=== PATIENT | male | born 1960 | race Caucasian/White ===

== ENCOUNTER 2018-03-19 02:43 | Inpatient (IN) | payer OTHER ==
[2018-03-19] MEDS ORDERED: predniSONE 20 MG TABLET (UD) PO ONE (04:46)
[2018-03-19] MEDS ORDERED: predniSONE 20 MG TABLET (UD) ONE (04:48)
[2018-03-19] MEDS ORDERED: ALBUTEROL SO4 2.5/IPRATROPIUM 0.5 INH SOL 3 ML VIAL.NEB. NEB ONE (04:48)
--- NOTE | 2018-03-19 04:51 | PDOC ---
History of Present Illness - General History Source: Patient Exam Limitations: No Limitations - History of Present Illness Initial Comments: 03/19/18 06:52 The patient is a 57-year-old male, with a past medical history of HTN and HLD, who presents to the ED with 4 days of wheezing and shortness of breath. Patient is a current everyday smoker. The patient denies any fevers, chills, nausea, vomiting, diarrhea, or abdominal pain. Denies any chest pain or palpitations. Denies any urinary symptoms. Allergies: ampicillin Social History: Current smoker. Surgical History: None reported. PCP: Dr. Olvera <Alison Solomon - Last Filed: 03/19/18 06:57> <Elizabeth Garrett - Last Filed: 03/19/18 07:12> - General Chief Complaint: Wheezing Stated Complaint: DIFFICULTY BREATHING Time Seen by Provider: 03/19/18 04:44 Past History <Alison Solomon - Last Filed: 03/19/18 06:57> - Past Medical History Anemia: No Asthma: No Cancer: No Cardiac Disorders: No CVA: No COPD: No CHF: No Dementia: No Diabetes: No GI Disorders: No Disorders: No HTN: Yes Hypercholesterolemia: Yes Liver Disease: No Seizures: No Thyroid Disease: No - Surgical History Abdominal Surgery: No Appendectomy: No Cardiac Surgery: No Cholecystectomy: No Lung Surgery: No Neurologic Surgery: No Orthopedic Surgery: No - Suicide/Smoking/Psychosocial Hx Smoking History: Current every day smoker Have you smoked in the past 12 months: Yes Number of Cigarettes Smoked Daily: 4 Information on smoking cessation initiated: No Hx Alcohol Use: No Drug/Substance Use Hx: No Substance Use Type: None <Elizabeth Garrett - Last Filed: 03/19/18 07:12> - Past Medical History Allergies/Adverse Reactions: Allergies Allergy/AdvReac Type Severity Reaction Status Date / Time ampicillin Allergy Verified 03/19/18 04:33 Home Medications: Ambulatory Orders Lisinopril 0 mg PO DAILY 03/19/18 Review of Systems - Review of Systems Able to Perform ROS?: Yes Comments:: 03/19/18 06:56 CONSTITUTIONAL: Absent: fever, chills, diaphoresis, generalized weakness, malaise, loss of appetite HEENT: Absent: rhinorrhea, nasal congestion, throat pain, throat swelling, difficulty swallowing, mouth swelling, ear pain, eye pain, visual Changes CARDIOVASCULAR: Absent: chest pain, syncope, palpitations, irregular heart rate, lightheadedness , peripheral edema RESPIRATORY: Present: (+)shortness of breath, wheezing. Absent: cough, dyspnea with exertion, orthopnea, stridor, hemoptysis GASTROINTESTINAL: Absent: abdominal pain, abdominal distension, nausea, vomiting, diarrhea, constipation, melena, hematochezia GENITOURINARY: Absent: dysuria, frequency, urgency, hesitancy, hematuria, flank pain, genital pain MUSCULOSKELETAL: Absent: myalgia, arthralgia, joint swelling SKIN: Absent: rash, itching, pallor HEMATOLOGIC/IMMUNOLOGIC: Absent: easy bleeding, easy bruising, lymphadenopathy, frequent infections ENDOCRINE: Absent: unexplained weight gain, unexplained weight loss, heat intolerance, cold intolerance NEUROLOGIC: Absent: headache, focal weakness or paresthesias, dizziness, unsteady gait, seizure, mental status changes, bladder or bowel incontinence PSYCHIATRIC: Absent: anxiety, depression, suicidal or homicidal ideation, hallucinations. <Alison Solomon - Last Filed: 03/19/18 06:57> *Physical Exam - Vital Signs Last Vital Signs Temp Pulse Resp BP Pulse Ox 97.7 F 89 19 145/100 98 03/19/18 04:34 03/19/18 06:39 03/19/18 06:39 03/19/18 06:39 03/19/18 05:29 - Physical Exam Comments: 03/19/18 06:57 GENERAL: Well developed, well nourished. Awake and alert. No acute distress. HEENT: (+)Nasal flaring. Normocephalic, atraumatic. PERRLA, EOMI. No conjunctival pallor. Sclera are non-icteric. Moist mucous membranes. Oropharynx is clear. NECK: Supple. Full ROM. No JVD. Carotid pulses 2+ and symmetric, without bruits. No thyromegaly. No lymphadenopathy. CARDIOVASCULAR: Regular rate and rhythm. No murmurs, rubs, or gallops. Distal pulses are 2+ and symmetric. PULMONARY: (+)Wheezing and crackles bilaterally. ABDOMINAL: Soft. Non-tender. Non-distended. No rebound or guarding. No organomegaly. Normoactive bowel sounds. MUSCULOSKELETAL Normal range of motion at all joints. No bony deformities or tenderness. No CVA tenderness. EXTREMITIES: (+)Bilateral lower extremity edema. No cyanosis. No clubbing. No calf tenderness. SKIN: Warm and dry. Normal capillary refill. No rashes. No jaundice. NEUROLOGICAL: Alert, awake, appropriate. Cranial nerves 2-12 intact. No deficits to light touch and temperature in face, upper extremities and lower extremities. No motor deficits in the in face, upper extremities and lower extremities. PSYCHIATRIC: Cooperative. Good eye contact. Appropriate mood and affect. <Alison Solomon - Last Filed: 03/19/18 06:57> - Vital Signs Last Vital Signs Temp Pulse Resp BP Pulse Ox 97.7 F 108 H 20 145/103 H 97 03/19/18 04:34 03/19/18 04:34 03/19/18 04:34 03/19/18 04:34 03/19/18 04:34 - Physical Exam General Appearance: Yes: Appropriately Dressed Respiratory/Chest: positive: Accessory Muscle Use, Labored Respiration, Rapid RR , Decreased Breath Sounds Cardiovascular: positive: Tachycardia Gastrointestinal/Abdominal: positive: Normal Bowel Sounds, Soft Extremity: positive: Normal Inspection, Normal Range of Motion, Pedal Edema, Swelling. negative: Calf Tenderness Integumentary: positive: Normal Color, Dry, Warm Neurologic: positive: Fully Oriented, Alert, Normal Mood/Affect <Elizabeth Garrett - Last Filed: 03/19/18 07:12> Heart Score/ECG Review - History History: Slightly suspicious - Electrocardiogram EKG: Normal - Age Age: 45-65 - Risk Factors Risk Factors Heart Score: Yes Hx Hypercholesterolemia, Yes Hx Hypertension, Yes Smoking History Based on the list above the patient has:: >/=3 risk factors or Hx atherosclerotic disease - Troponin Troponin: </= normal limit - Score Heart Score - Total: 3 - ECG Intrepretation Rhythm: Regular Rhythm Comment:: 03/19/18 07:09 NSR; 96 BPM <Elizabeth Garrett - Last Filed: 03/19/18 07:12> ED Treatment Course - LABORATORY CBC & Chemistry Diagram: 03/19/18 05:28 03/19/18 05:28 - ADDITIONAL ORDERS Additional order review: Laboratory Results 03/19/18 03/19/18 03/19/18 05:28 05:28 05:28 Sodium 140 Potassium 4.6 Chloride 106 Carbon Dioxide 30 Anion Gap 5 L BUN 18 Creatinine 1.0 Creat Clearance w eGFR > 60 Random Glucose 114 H Calcium 8.7 Total Bilirubin 0.6 AST 26 ALT 34 Alkaline Phosphatase 101 Troponin I 0.02 B-Natriuretic Peptide 2118.3 H Total Protein 7.7 Albumin 3.8 Lipase 136 03/19/18 05:28 RBC 5.06 MCV 82.3 MCHC 32.1 RDW 14.8 D MPV 10.5 Neutrophils % 59.9 Lymphocytes % 29.0 D Monocytes % 8.9 Eosinophils % 1.6 Basophils % 0.6 - Medications Given in the ED: ED Medications Discontinued Medications Generic Name Dose Route Start Last Admin Trade Name Freq PRN Reason Stop Dose Admin Albuterol/Ipratropium 1 amp 03/19/18 05:00 03/19/18 06:16 Duoneb - NEB 03/19/18 05:46 1 amp Q15M KANDY Administration Furosemide 40 mg 03/19/18 06:24 03/19/18 06:34 Lasix Injection - IVPUSH 03/19/18 06:25 40 mg ONCE ONE Administration Prednisone 60 mg 03/19/18 04:46 03/19/18 04:53 Deltasone - PO 03/19/18 04:47 60 mg ONCE ONE Administration <Alison Solomon - Last Filed: 03/19/18 06:57> - LABORATORY CBC & Chemistry Diagram: 03/19/18 05:28 03/19/18 05:28 <Elizabeth Garrett - Last Filed: 03/19/18 07:12> Progress Note - Progress Note Progress Note: A: <Elizabeth Garrett - Last Filed: 03/19/18 07:12> Medical Decision Making - Medical Decision Making 03/19/18 07:07 improved aeration + tachypnea and rales on exam, patient to be admitted. pending sign out to hospitalist team for May service. <Elizabeth Garrett - Last Filed: 03/19/18 07:12> *DC/Admit/Observation/Transfer - Attestations Scribe Attestion: 03/19/18 06:59 Documentation prepared by Alison Solomon, acting as curator medical museum for Mackenzie Sandy MD. <Alison Solomon - Last Filed: 03/19/18 06:57> - Discharge Dispostion Decision to Admit order: Yes <Elizabeth Garrett - Last Filed: 03/19/18 07:12> Diagnosis at time of Disposition: Respiratory distress Hypertension Qualifiers: Hypertension type: essential hypertension Qualified Code(s): I10 - Essential ( primary) hypertension CHF exacerbation Qualifiers: Heart failure type: unspecified Qualified Code(s): I50.9 - Heart failure, unspecified - Referrals Referrals: Luis Olvera MD [Primary Care Provider] - - Patient Instructions - Post Discharge Activity
[2018-03-19 04:52] VITALS: BMI 29.8
[2018-03-19] MEDS: ALBUTEROL SO4 2.5/IPRATROPIUM 0.5 INH SOL 3 ML VIAL.NEB. NEB SCH ×4 (05:01→06:16)
[2018-03-19 05:41] LABS: BASO % 0.6 % (0-2.0); EOS % 1.6 % (0-4.5); HEMATOCRIT 41.7 % (35.4-49); HEMOGLOBIN 13.4 GM/dL (11.7-16.9); MCH 26.4 pg (25.7-33.7); MCHC 32.1 g/dl (32.0-35.9); MEAN CELL VOLUME 82.3 fl (80-96); MEAN PLT VOLUME 10.5 fl (7.5-11.1); MONO % 8.9 % (3.8-10.2); NEUT % 59.9 % (42.8-82.8); PLATELET COUNT 266 K/MM3 (134-434); RBC 5.06 M/mm3 (4.00-5.60); RDW 14.8 % (11.9-15.9); WHITE BLOOD COUNT 10.6 K/mm3 (4.0-10.0)
[2018-03-19 06:05] LABS: ALBUMIN 3.8 g/dl (3.4-5.0); ALK PHOS 101 U/L (45-117); ANION GAP 5 MMOL/L (8-16); BILIRUBIN,TOTAL 0.6 mg/dL (0.2-1); BLOOD UREA NITROGEN 18 mg/dL (7-18); CALCIUM 8.7 mg/dL (8.5-10.1); CHLORIDE 106 mmol/L (98-107); CO2 30 mmol/L (21-32); GLUCOSE,RANDOM 114 mg/dL (74-106); POTASSIUM 4.6 mmol/L (3.5-5.1); SGOT/AST 26 U/L (15-37); SGPT/ALT 34 U/L (13-61); SODIUM 140 mmol/L (136-145); TOT PROT 7.7 g/dl (6.4-8.2)
[2018-03-19] MEDS ORDERED: FUROSEMIDE 40 MG/4 ML INJECTABLE VIAL IVPUSH ONE (06:24)
[2018-03-19] MEDS ORDERED: FUROSEMIDE 40 MG/4 ML INJECTABLE VIAL ONE (06:31)
--- NOTE | 2018-03-19 08:36 | PDOC ---
*Physical Exam - Vital Signs Last Vital Signs Temp Pulse Resp BP Pulse Ox 98.5 F 89 19 152/102 H 95 03/19/18 07:19 03/19/18 07:19 03/19/18 07:19 03/19/18 07:19 03/19/18 07:19 <LluviaEnid dennis - Last Filed: 03/19/18 09:26> - Vital Signs Last Vital Signs Temp Pulse Resp BP Pulse Ox 98.5 F 89 19 152/102 H 95 03/19/18 07:19 03/19/18 07:19 03/19/18 07:19 03/19/18 07:19 03/19/18 07:19 - Physical Exam General Appearance: Yes: Appropriately Dressed. No: Apparent Distress HEENT: positive: Normal Voice Neck: positive: Supple Respiratory/Chest: negative: Respiratory Distress Cardiovascular: positive: S1, S2 Gastrointestinal/Abdominal: positive: Soft. negative: Tender Extremity: negative: Pedal Edema Integumentary: positive: Dry, Warm Neurologic: positive: Fully Oriented, Alert, Normal Mood/Affect <Pieter Jenkins - Last Filed: 03/19/18 10:16> ED Treatment Course - LABORATORY CBC & Chemistry Diagram: 03/19/18 05:28 03/19/18 05:28 - ADDITIONAL ORDERS Additional order review: Laboratory Results 03/19/18 03/19/18 03/19/18 05:28 05:28 05:28 Sodium 140 Potassium 4.6 Chloride 106 Carbon Dioxide 30 Anion Gap 5 L BUN 18 Creatinine 1.0 Creat Clearance w eGFR > 60 Random Glucose 114 H Calcium 8.7 Total Bilirubin 0.6 AST 26 ALT 34 Alkaline Phosphatase 101 Troponin I 0.02 B-Natriuretic Peptide 2118.3 H Total Protein 7.7 Albumin 3.8 Lipase 136 03/19/18 05:28 RBC 5.06 MCV 82.3 MCHC 32.1 RDW 14.8 D MPV 10.5 Neutrophils % 59.9 Lymphocytes % 29.0 D Monocytes % 8.9 Eosinophils % 1.6 Basophils % 0.6 - Medications Given in the ED: ED Medications Discontinued Medications Generic Name Dose Route Start Last Admin Trade Name Freq PRN Reason Stop Dose Admin Albuterol/Ipratropium 1 amp 03/19/18 05:00 03/19/18 06:16 Duoneb - NEB 03/19/18 05:46 1 amp Q15M KANDY Administration Furosemide 40 mg 03/19/18 06:24 03/19/18 06:34 Lasix Injection - IVPUSH 03/19/18 06:25 40 mg ONCE ONE Administration Prednisone 60 mg 03/19/18 04:46 03/19/18 04:53 Deltasone - PO 03/19/18 04:47 60 mg ONCE ONE Administration - Consult/PCP Time Called: 09:26 (2nd call Dr. Olvera) <Enid Teixeira - Last Filed: 03/19/18 09:26> - LABORATORY CBC & Chemistry Diagram: 03/19/18 05:28 03/19/18 05:28 - ADDITIONAL ORDERS Additional order review: Laboratory Results 03/19/18 03/19/18 03/19/18 05:28 05:28 05:28 Sodium 140 Potassium 4.6 Chloride 106 Carbon Dioxide 30 Anion Gap 5 L BUN 18 Creatinine 1.0 Creat Clearance w eGFR > 60 Random Glucose 114 H Calcium 8.7 Total Bilirubin 0.6 AST 26 ALT 34 Alkaline Phosphatase 101 Troponin I 0.02 B-Natriuretic Peptide 2118.3 H Total Protein 7.7 Albumin 3.8 Lipase 136 03/19/18 05:28 RBC 5.06 MCV 82.3 MCHC 32.1 RDW 14.8 D MPV 10.5 Neutrophils % 59.9 Lymphocytes % 29.0 D Monocytes % 8.9 Eosinophils % 1.6 Basophils % 0.6 - Medications Given in the ED: ED Medications Discontinued Medications Generic Name Dose Route Start Last Admin Trade Name Freq PRN Reason Stop Dose Admin Albuterol/Ipratropium 1 amp 03/19/18 05:00 03/19/18 06:16 Duoneb - NEB 03/19/18 05:46 1 amp Q15M KANDY Administration Furosemide 40 mg 03/19/18 06:24 03/19/18 06:34 Lasix Injection - IVPUSH 03/19/18 06:25 40 mg ONCE ONE Administration Prednisone 60 mg 03/19/18 04:46 03/19/18 04:53 Deltasone - PO 03/19/18 04:47 60 mg ONCE ONE Administration <Pieter Jenkins - Last Filed: 03/19/18 10:16> Medical Decision Making - Medical Decision Making 03/19/18 08:33 57 yo M, history of HTN, HLD, smoker, non-compliant, here with shortness of breath and wheezing. Elevated BP in ED. Chest x-ray w/ "course lung changes", BNP >2K. EKG and trop wnl. Patient has since been given lasix, steroids and duoneb with improvement in symptoms per prior team. Pending admission for new onset CHF 03/19/18 08:49 03/19/18 10:15 Dr. Olvera paged multiple times with no answer. Hospitalist informed <Peiter Jenkins - Last Filed: 03/19/18 10:16> *DC/Admit/Observation/Transfer <Enid Teixeira - Last Filed: 03/19/18 09:26> - Discharge Dispostion Decision to Admit order: Yes <Pieter Jenkins - Last Filed: 03/19/18 10:16> Diagnosis at time of Disposition: Respiratory distress Hypertension Qualifiers: Hypertension type: essential hypertension Qualified Code(s): I10 - Essential ( primary) hypertension CHF exacerbation Qualifiers: Heart failure type: unspecified Qualified Code(s): I50.9 - Heart failure, unspecified - Discharge Dispostion Condition at time of disposition: Fair
[2018-03-19 10:31] VITALS: TEMP 98.2
--- NOTE | 2018-03-19 11:58 | EKG ---
Test Reason : Blood Pressure : / mmHG Vent. Rate : 096 BPM Atrial Rate : 096 BPM P-R Int : 142 ms QRS Dur : 098 ms QT Int : 382 ms P-R-T Axes : 069 035 074 degrees QTc Int : 482 ms NORMAL SINUS RHYTHM POSSIBLE LEFT ATRIAL ENLARGEMENT CANNOT RULE OUT ANTERIOR INFARCT , AGE UNDETERMINED ABNORMAL ECG NO PREVIOUS ECGS AVAILABLE Confirmed by SABRINA MORGAN, VAZQUEZ ([id number]) on 03/19/2018 11:57:28 AM Referred By: Confirmed By:VAZQUEZ BENNETT MD
[2018-03-19 15:10] VITALS: BP 141/68; PULSE 86
--- NOTE | 2018-03-19 16:43 | DS ---
Physical Examination Vital Signs: Vital Signs Temperature 98.2 F 03/19/18 10:30 Pulse Rate 86 03/19/18 15:09 Respiratory Rate 18 03/19/18 15:09 Blood Pressure 141/68 03/19/18 15:09 O2 Sat by Pulse Oximetry (%) 97 03/19/18 15:09 Findings/Remarks: The patient is a 57-year-old male, with a past medical history of HTN and HLD, who presents to the ED with 3 days of wheezing and shortness of breath. Patient is a current everyday smoker. He takes Lisinopril 20 mg po daily for HTN. Upon evaluation, his labs and CXR is unremarkable except mildly elevated BNP at 2118. During the course of ER, he was given Prednisone 60 mg PO once , Furosemide 40 mg IVP once and albuterol neb UD x 4. Currently he is ambulating in the ER hallway, anxious to be discharged. He denies any SOB, wheezing, any pain, light headedness or dizziness. Constitutional: Yes: Well Nourished, No Distress, Calm Cardiovascular: Yes: Regular Rate and Rhythm Respiratory: Yes: Regular Gastrointestinal: Yes: Normal Bowel Sounds, Soft, Abdomen, Obese Musculoskeletal: Yes: WNL Extremities: Yes: WNL Edema: No Peripheral Pulses WNL: Yes Integumentary: Yes: Erythema (Psoriatric rash BLLE) Neurological: Yes: Alert, Oriented Psychiatric: Yes: Alert, Oriented Labs: CBC, BMP 03/19/18 05:28 03/19/18 05:28 Discharge Summary Reason For Visit: CONGESTIVE HEART FAILURE Current Active Problems CHF exacerbation (Acute) Hypertension (Acute) Respiratory distress (Acute) Condition: Stable - Instructions Diet, Activity, Other Instructions: Follow up with Dr Luis Olvera MD tomorrow on 03/20/18 Start taking Furosemide 40 mg daily Also take Medrol dose pack-as directed on the pack Continue Lisinopril 20 mg daily in AM Proair inh 2 puff Q4h PRN for SOB Triamcinolone 0.1% BID BLLE Strictly follow Low Sodium Diet Referrals: Luis Olvera MD [Primary Care Provider] - Disposition: HOME - Home Medications Comprehensive Discharge Medication List: Ambulatory Orders Albuterol Sulfate [Proair Hfa] 8.5 gm IH Q4H PRN #1 hfa.aer.ad 03/19/18 Furosemide 40 mg PO DAILY #30 tablet 03/19/18 Lisinopril 0 mg PO DAILY 03/19/18 Lisinopril 20 mg PO DAILY #30 tablet 03/19/18 Methylprednisolone [Medrol Dose Anibal] 4 mg PO ASDIR #21 tablet 03/19/18 Triamcinolone 0.1% Ointment [Aristocort 0.1% Ointment -] 1 applic TP BID #45 g 03/19/18
== END 2018-03-19 16:38 | disposition home or self-care (01) | DRG 194 ==
LOC: JER 02:43 → JERBED 08:36
PROVIDERS: ADMIT Family Medicine; ATTEND Family Medicine
DX: I11.0 Hypertensive heart disease with heart failure (principal); I50.9 Heart failure, unspecified; E78.5 Hyperlipidemia, unspecified; F17.210 Nicotine dependence, cigarettes, uncomplicated
CPT/HCPCS: 36415; 71046-TC-FY; 80053; 83690; 83880; 84484; 85025; 93005; 93010; 99284-25; J7620

== ENCOUNTER 2018-05-27 15:57 | Inpatient (IN) | payer OTHER ==
[2018-05-27 16:11] VITALS: BMI 31.3
--- NOTE | 2018-05-27 16:12 | PDOC ---
Rapid Medical Evaluation Chief Complaint: Congestive Heart Failure Time Seen by Provider: 05/27/18 16:05 Medical Evaluation: Allergies Allergy/AdvReac Type Severity Reaction Status Date / Time No Known Allergies Allergy Verified 05/27/18 16:01 05/27/18 16:09 I have performed a brief in-person evaluation of this patient. The patient presents with a chief complaint of: h/o CHF presenting with complains of SOB and palpitations since this AM. Denies CP, dizziness, N/V, sweats Pertinent physical exam findings: no acute distress. A&O x 3. heart RRR. lungs CTAB I have ordered the following: EKG, CMP,CBC,Cardiac profile, CXR The patient will proceed to the ED for further evaluation 05/27/18 16:11 Discharge Disposition - Diagnosis SOB (shortness of breath) - Discharge Dispostion Condition at time of disposition: Stable - Referrals - Patient Instructions - Post Discharge Activity
[2018-05-27 16:42] LABS: BASO % 1.2 % (0-2.0); EOS % 0.9 % (0-4.5); HEMATOCRIT 38.5 % (35.4-49); HEMOGLOBIN 12.8 GM/dL (11.7-16.9); LYMPH % 23.1 % (8-40); MCHC 33.4 g/dl (32.0-35.9); MONO % 8.5 % (3.8-10.2); NEUT % 66.3 % (42.8-82.8); PLATELET COUNT 322 K/MM3 (134-434); RBC 4.75 M/mm3 (4.00-5.60); RDW 14.9 % (11.9-15.9); WHITE BLOOD COUNT 10.7 K/mm3 (4.0-10.0)
--- NOTE | 2018-05-27 16:51 | PDOC ---
Attending Attestation - HPI HPI: 05/27/18 16:55 The patient is a 57 year old male, with a significant past medical history of hypertension, hypercholesterolemia, chronic venous stasis, who presents to the emergency department with shortness of breath and palpitations today. He also reports left lower extremity edema. The patient denies chest pain, headache and dizziness. The patient denies fever , chills, nausea, vomit, diarrhea and constipation. The patient denies dysuria, frequency, urgency and hematuria. Allergies: NKDA: PCP - Dr. Olvera - Physicial Exam PE: 05/27/18 16:55 GENERAL: Well developed, well nourished. Awake and alert. No acute distress. HEENT: Normocephalic, atraumatic. PERRLA, EOMI. No conjunctival pallor. Sclera are non- icteric. Moist mucous membranes. Oropharynx is clear. NECK: Supple. Full ROM. No JVD. Carotid pulses 2+ and symmetric, without bruits. No thyromegaly. No lymphadenopathy. CARDIOVASCULAR: (+) tachycardic rate. Regular rhythm. No murmurs, rubs, or gallops. Distal pulses are 2+ and symmetric. PULMONARY: No evidence of respiratory distress. Lungs clear to auscultation bilaterally. No wheezing, rales or rhonchi. ABDOMINAL: Soft. Non-tender. Non-distended. No rebound or guarding. No organomegaly. Normoactive bowel sounds. MUSCULOSKELETAL Normal range of motion at all joints. No bony deformities or tenderness. No CVA tenderness. EXTREMITIES: (+) chronic venous stasis. Pitting edema bilaterally. No cyanosis. No clubbing. No calf tenderness. SKIN: Warm and dry. Normal capillary refill. No rashes. No jaundice. NEUROLOGICAL: Alert, awake, appropriate. Cranial nerves 2-12 intact. Normoreflexic in the upper and lower extremities. Normal speech. Toes are down-going bilaterally. Gait is normal without ataxia. PSYCHIATRIC: Cooperative. Good eye contact. Appropriate mood and affect. - Medical Decision Making 05/27/18 16:55 Documentation prepared by Taylor Jolly, acting as medical insurance coder for Corine Garrett MD <Taylor Jolly - Last Filed: 05/27/18 16:54> - Resident Resident Name: Jodi Mustafa - ED Attending Attestation I have performed the following: I have examined & evaluated the patient, The case was reviewed & discussed with the resident, I agree w/resident's findings & plan, Exceptions are as noted - Medical Decision Making 05/27/18 17:26 57 yo male p/w complaint chest pain,palpitations He was admittted on Mar this year for CHF and stress test was done revealing . Dilated left ventricle, LVEF 22% Stress test in March showed large inferior and inferioapical fixed defects c/ w infarct 05/27/18 17:44 05/27/18 19:45 bnp>6000 pt admitted for chf exacerbation,persisitent tachycardia <Corine Garrett - Last Filed: 05/27/18 19:46>
[2018-05-27 17:07] LABS: ALBUMIN 3.5 g/dl (3.4-5.0); ALK PHOS 127 U/L (45-117); ANION GAP 8 MMOL/L (8-16); BILIRUBIN,TOTAL 1.9 mg/dL (0.2-1); BLOOD UREA NITROGEN 20 mg/dL (7-18); CALCIUM 8.5 mg/dL (8.5-10.1); CHLORIDE 108 mmol/L (98-107); CO2 26 mmol/L (21-32); CREATININE 1.2 mg/dL (0.55-1.3); GLUCOSE,RANDOM 114 mg/dL (74-106); POTASSIUM 4.4 mmol/L (3.5-5.1); SGOT/AST 20 U/L (15-37); SGPT/ALT 33 U/L (13-61); SODIUM 143 mmol/L (136-145); TOT PROT 7.6 g/dl (6.4-8.2)
[2018-05-27] MEDS ORDERED: ASPIRIN 325 MG TABLET PO ONE ×2 (17:12→17:50)
--- NOTE | 2018-05-27 17:22 | PDOC ---
History of Present Illness - General Chief Complaint: Congestive Heart Failure Stated Complaint: PALPITATIONS Time Seen by Provider: 05/27/18 16:05 History Source: Patient, Family (sister), Old Records Exam Limitations: Language Barrier - History of Present Illness Initial Comments: 05/27/18 17:17 Pt is a 57yo M with PMH of CHF, HTN presenting to ED with complaints of chest pressure that started this morning. Pt says he has had chest pressure for about 9 hours now and has been getting worse. He denies endorses occasional cough productive of white sputum and SOB with rest and exertion. He also says he has pain in his L anterior amaya and bilateral leg swelling. He denies chest pain, abdominal pain, n/v/d, bloody stools, hemoptysis, recent travel, recent surgeries. Sleeps with 1 pillow. No orthopnea. Pt says he took his medications today (carvedilol, lasix, FeSO4) PMD: May PMH: CHF, htn PSH: vascular Meds: carvedilol, lasix, iron Social: smokes 3 cigarettes/day Allergies: nkda Past History - Past Medical History Allergies/Adverse Reactions: Allergies Allergy/AdvReac Type Severity Reaction Status Date / Time No Known Allergies Allergy Verified 05/27/18 16:01 Home Medications: Ambulatory Orders Albuterol Sulfate [Proair Hfa] 8.5 gm IH Q4H PRN #1 hfa.aer.ad 03/19/18 Furosemide 40 mg PO DAILY #30 tablet 03/19/18 Lisinopril 0 mg PO DAILY 03/19/18 Lisinopril 20 mg PO DAILY #30 tablet 03/19/18 Methylprednisolone [Medrol Dose Anibal] 4 mg PO ASDIR #21 tablet 03/19/18 Triamcinolone 0.1% Ointment [Aristocort 0.1% Ointment -] 1 applic TP BID #45 g 03/19/18 Anemia: No Asthma: Yes Cancer: No Cardiac Disorders: Yes (CHF) CVA: No COPD: No CHF: No Dementia: No Diabetes: Yes GI Disorders: No Disorders: No HTN: Yes Hypercholesterolemia: Yes Liver Disease: No Seizures: No Thyroid Disease: No - Surgical History Abdominal Surgery: No Appendectomy: No Cardiac Surgery: No Cholecystectomy: No Lung Surgery: No Neurologic Surgery: No Orthopedic Surgery: No - Immunization History Immunization Up to Date: Yes - Suicide/Smoking/Psychosocial Hx Smoking History: Current every day smoker Have you smoked in the past 12 months: No Number of Cigarettes Smoked Daily: 4 Information on smoking cessation initiated: No Hx Alcohol Use: No Drug/Substance Use Hx: No Substance Use Type: None Review of Systems - Review of Systems Constitutional: Yes: Weight Stable. No: Chills, Fever HEENTM: No: Symptoms Reported Respiratory: Yes: Cough, SOB with Exertion, SOB at Rest. No: Hemoptysis Cardiac (ROS): Yes: See HPI, Palpitations, Chest Tightness. No: Lightheadedness , Syncope ABD/GI: No: Constipated, Diarrhea, Nausea, Rectal Bleeding, Vomiting, Abdominal cramping, Tarry Stools : No: Burning, Dysuria, Frequency Musculoskeletal: No: Back Pain, Joint Pain, Neck Pain Integumentary: No: Symptoms Reported Neurological: No: Headache, Numbness, Tingling *Physical Exam - Vital Signs Last Vital Signs Temp Pulse Resp BP Pulse Ox 97.5 F L 111 H 16 127/97 100 05/27/18 16:06 05/27/18 16:06 05/27/18 16:06 05/27/18 16:06 05/27/18 16:06 - Physical Exam General Appearance: Yes: Nourished, Appropriately Dressed. No: Apparent Distress HEENT: positive: EOMI, OCTAVIO, Normal ENT Inspection Neck: positive: Trachea midline, Supple. negative: Lymphadenopathy (R), Lymphadenopathy (L) Respiratory/Chest: positive: Lungs Clear, Normal Breath Sounds. negative: Crackles, Rales, Rhonchi, Stridor, Wheezing Cardiovascular: positive: Regular Rhythm, Regular Rate, S1, S2. negative: Edema , JVD, Murmur Vascular Pulses: Carotid (R): 2+, Carotid (L): 2+, Dorsalis-Pedis (R): 2+, Doralis-Pedis (L): 2+ Gastrointestinal/Abdominal: positive: Normal Bowel Sounds, Soft Musculoskeletal: positive: Normal Inspection. negative: CVA Tenderness Extremity: positive: Normal Capillary Refill, Pedal Edema (bilateral pitting edema to knee. overlying skin changes ). negative: Calf Tenderness Integumentary: positive: Normal Color, Dry, Warm. negative: Erythema, Pale, Cold, Clammy, Rash, Swelling Neurologic: positive: director of land II-XII NML intact, Fully Oriented, Alert, Normal Mood/ Affect, Normal Response, Motor Strength 5/5 Moderate Sedation - Procedure Monitoring Vital Signs: Procedure Monitoring Vital Signs Temperature 97.5 F L 05/27/18 16:06 Pulse Rate 111 H 05/27/18 16:06 Respiratory Rate 16 05/27/18 16:06 Blood Pressure 127/97 05/27/18 16:06 O2 Sat by Pulse Oximetry (%) 100 05/27/18 16:06 ED Treatment Course - LABORATORY CBC & Chemistry Diagram: 05/27/18 16:25 05/27/18 16:25 - ADDITIONAL ORDERS Additional order review: Laboratory Results 05/27/18 16:25 Sodium 143 Potassium 4.4 Chloride 108 H Carbon Dioxide 26 Anion Gap 8 BUN 20 H Creatinine 1.2 Creat Clearance w eGFR > 60 Random Glucose 114 H Calcium 8.5 Total Bilirubin 1.9 H AST 20 ALT 33 Alkaline Phosphatase 127 H Creatine Kinase 95 Troponin I 0.02 Total Protein 7.6 Albumin 3.5 05/27/18 16:25 RBC 4.75 MCV 81.0 MCHC 33.4 RDW 14.9 MPV 11.0 Neutrophils % 66.3 Lymphocytes % 23.1 D Monocytes % 8.5 Eosinophils % 0.9 Basophils % 1.2 - RADIOLOGY Radiology Studies Ordered: Category Date Time Status DUPLEX VASCUL US-2LEGS [US] Stat Ultrasound 05/27/18 17:07 Ordered Medical Decision Making - Medical Decision Making 05/27/18 17:22 Pt is a 57yo M with PMH of CHF, HTN presenting to ED with complaints of chest pressure that started this morning. Pt says he has had chest pressure for about 9 hours now and has been getting worse. He denies endorses occasional cough productive of white sputum and SOB with rest and exertion. He also says he has pain in his L anterior amaya and bilateral leg swelling. He denies chest pain, SOB, abdominal pain, n/v/d, bloody stools, hemoptysis, recent travel, recent surgeries. Sleeps with 1 pillow. No orthopnea Vitals: tachycardia 110s, BP wnl. Saturating well on RA PE: bilateral pitting edema to mid calf with overlying skin changes. No erythema, no warmth. DDx includes but not limited to PE, ACS, toxidrome, vascular pathology, sepsis, arrhythmia, CHF, COPD, PNA, Dissection -Well's score for PE 1.5. Low risk -Pt is not tachypneic, saturating 100% RA trop negative Labs ordered by RME. Added on BNP. Will give Lasix 40IV and ASA. DVT study. Labs wnl, WBC at baseline. TBili elevated at 1.9 with elevated AlkP compared to baseline. Added D. Bili. 05/27/18 18:21 Called lab 3 times for add on BNP and D. Bili CXR shows mild congestive changes -Pt had stress test done in April 08, 2018 which shows dilated LV at baseline. Large inferior and inferoapical fixed defects consistent with infarct. There is no evidence of vasodilator induced ischemia. LVEF 22% 05/27/18 19:12 BNP elevated in 6000s. D bili 0.6. DVT study negative. PT given Lasix and ASA. UA in process. Will admit for CHF exacerbation 05/27/18 19:[address] Lin. Agrees with plan. Tachycardia probably from decompensated heart failure. Will admit to Tele. *DC/Admit/Observation/Transfer Diagnosis at time of Disposition: SOB (shortness of breath) CHF (congestive heart failure) Qualifiers: Heart failure type: unspecified Heart failure chronicity: acute on chronic Qualified Code(s): I50.9 - Heart failure, unspecified - Discharge Dispostion Condition at time of disposition: Stable Decision to Admit order: Yes - Referrals Referrals: Luis Olvera MD [Primary Care Provider] - Dexter Mcgowan MD [Staff Physician] - - Patient Instructions - Post Discharge Activity
[2018-05-27] MEDS ORDERED: ASPIRIN 81 MG CHEWABLE TABLETS PO ONE (17:39)
[2018-05-27] MEDS ORDERED: FUROSEMIDE 40 MG/4 ML INJECTABLE VIAL IVPUSH ONE (17:39)
[2018-05-27] MEDS ORDERED: ASPIRIN 325 MG TABLET ONE (17:46)
[2018-05-27] MEDS ORDERED: FUROSEMIDE 40 MG/4 ML INJECTABLE VIAL ONE (18:29)
[2018-05-27 18:43] LABS: BILIRUBIN,DIRECT 0.6 mg/dL (0.0-0.2); N-TERMINAL BNP 6785.6 pg/ml (5-125)
--- NOTE | 2018-05-27 19:46 | HP ---
Admitting History and Physical - Primary Care Physician PCP: Luis Olvera - Admission History of Present Illness: This is a 57 y/o man with a significant past medical history of Hypertension, Hypercholesterolemia, Chronic Venous Stasis Ulcer. Who presents to the ED with SOB and palpitations today. Patient also reports left lower extremity edema. Patient reports [place]RISTENS[place], only able to take a few short steps. Patient reports having a chronic wound to his RLE, that he has not had treatments. The patient denies chest pain, headache and dizziness. The patient denies fever, chills, nausea, vomit, diarrhea and constipation. The patient denies dysuria, frequency , urgency and hematuria. History Source: Patient Limitations to Obtaining History: No Limitations - Past Medical History Cardiovascular: Yes: CHF, HTN, Hyperlipdemia - Smoking History Smoking history: Current every day smoker Have you smoked in the past 12 months: No Aproximately how many cigarettes per day: 4 - Alcohol/Substance Use Hx Alcohol Use: No - Social History Usual Living Arrangement: Yes: With Child ADL: Independent History of Recent Travel: No Home Medications - Allergies Allergies/Adverse Reactions: Allergies Allergy/AdvReac Type Severity Reaction Status Date / Time No Known Allergies Allergy Verified 05/27/18 16:01 - Home Medications Home Medications: Ambulatory Orders Albuterol Sulfate [Proair Hfa] 8.5 gm IH Q4H PRN #1 hfa.aer.ad 03/19/18 Furosemide 40 mg PO DAILY #30 tablet 03/19/18 Lisinopril 20 mg PO DAILY #30 tablet 03/19/18 Methylprednisolone [Medrol Dose Anibal] 4 mg PO ASDIR #21 tablet 03/19/18 Triamcinolone 0.1% Ointment [Aristocort 0.1% Ointment -] 1 applic TP BID #45 g 03/19/18 Review of Systems - Review of Systems Constitutional: reports: No Symptoms Eyes: reports: No Symptoms HENT: reports: No Symptoms Neck: reports: No Symptoms Cardiovascular: reports: Edema, Shortness of Breath, Other (chest pressure) Respiratory: reports: SOB, SOB on Exertion Gastrointestinal: reports: No Symptoms Genitourinary: reports: No Symptoms Breasts: reports: No Symptoms Reported Musculoskeletal: reports: Joint Swelling Integumentary: reports: Wound (Stage III venous stasis ulcer, lateral aspect R- ankle/foot) Neurological: reports: No Symptoms Endocrine: reports: No Symptoms Hematology/Lymphatic: reports: No Symptoms Psychiatric: reports: No Symptoms Physical Examination Vital Signs: Vital Signs Temperature 97.5 F L 05/27/18 16:06 Pulse Rate 111 H 05/27/18 16:06 Respiratory Rate 16 05/27/18 16:06 Blood Pressure 127/97 05/27/18 16:06 O2 Sat by Pulse Oximetry (%) 100 05/27/18 16:06 Constitutional: Yes: Well Nourished, No Distress, Calm, Obese Eyes: Yes: WNL, Conjunctiva Clear, EOM Intact, PERRL HENT: Yes: WNL, Atraumatic, Normocephalic Neck: Yes: WNL, Supple, Trachea Midline Cardiovascular: Yes: Tachycardia, S1, S2 Respiratory: Yes: Diminished (bases), On Nasal O2, SOB, SOB on Exertion Gastrointestinal: Yes: WNL, Normal Bowel Sounds, Soft Renal/: Yes: WNL Breast(s): Yes: WNL Extremities: Yes: Erythema Edema: Yes Edema: LLE: 1+, RLE: 1+ Peripheral Pulses WNL: Yes Integumentary: Yes: Erythema, Venous Stasis Changes Wound/Incision: Yes: Open to air Neurological: Yes: WNL, Alert, Oriented, Cran Nerves II-XII Intact ...Motor Strength: WNL, LUE, LLE, RUE, RLE Psychiatric: Yes: WNL, Alert, Oriented Labs: CBC, BMP 05/27/18 16:25 05/27/18 16:25 Laboratory Results - last 24 hr 05/27/18 05/27/18 05/27/18 16:25 16:25 20:54 WBC 10.7 H RBC 4.75 Hgb 12.8 Hct 38.5 MCV 81.0 MCH 27.0 MCHC 33.4 RDW 14.9 Plt Count 322 D MPV 11.0 Absolute Neuts (auto) 7.1 Neutrophils % 66.3 Lymphocytes % 23.1 D Monocytes % 8.5 Eosinophils % 0.9 Basophils % 1.2 Nucleated RBC % 0 PT with INR INR D-Dimer Sodium 143 Potassium 4.4 Chloride 108 H Carbon Dioxide 26 Anion Gap 8 BUN 20 H Creatinine 1.2 Creat Clearance w eGFR > 60 Random Glucose 114 H Calcium 8.5 Total Bilirubin 1.9 H Direct Bilirubin 0.6 H AST 20 ALT 33 Alkaline Phosphatase 127 H Creatine Kinase 95 Troponin I 0.02 B-Natriuretic Peptide 6785.6 H Total Protein 7.6 Albumin 3.5 Urine Color Colorless Urine Appearance Clear Urine pH 7.0 Ur Specific [place] 1.004 L Urine Protein Negative Urine Glucose (UA) Negative Urine Ketones Negative Urine Blood Negative Urine Nitrite Negative Urine Bilirubin Negative Urine Urobilinogen Negative Ur Leukocyte Esterase Negative 05/27/18 05/27/18 20:54 20:54 WBC RBC Hgb Hct MCV MCH MCHC RDW Plt Count MPV Absolute Neuts (auto) Neutrophils % Lymphocytes % Monocytes % Eosinophils % Basophils % Nucleated RBC % PT with INR 21.00 H INR 1.77 H D-Dimer 1399 H Sodium Potassium Chloride Carbon Dioxide Anion Gap BUN Creatinine Creat Clearance w eGFR Random Glucose Calcium Total Bilirubin Direct Bilirubin AST ALT Alkaline Phosphatase Creatine Kinase Troponin I B-Natriuretic Peptide Total Protein Albumin Urine Color Urine Appearance Urine pH Ur Specific [place] Urine Protein Urine Glucose (UA) Urine Ketones Urine Blood Urine Nitrite Urine Bilirubin Urine Urobilinogen Ur Leukocyte Esterase Intake & Output 05/25/18 05/26/18 05/27/18 05/28/18 23:59 23:59 23:59 23:59 Weight 90.718 kg 90.718 kg Current Medications Generic Name Dose Route Start Last Admin Trade Name Freq PRN Reason Stop Dose Admin Aspirin 81 mg 05/28/18 10:00 Asa - PO DAILY COUNT INCLUDES THE [facility] Carvedilol 3.125 mg 05/27/18 22:45 05/27/18 23:12 Coreg - PO 3.125 mg BID KANDY Administration Enoxaparin Sodium 40 mg 05/28/18 10:00 Lovenox - SQ DAILY COUNT INCLUDES THE [facility] Ferrous Sulfate 325 mg 05/28/18 10:00 Feosol - PO DAILY COUNT INCLUDES THE [facility] Furosemide 40 mg 05/28/18 10:00 Lasix Injection - IVPUSH DAILY COUNT INCLUDES THE [facility] Vancomycin HCl 1,000 mg/ 250 mls @ 166.667 mls/hr 05/28/18 05:16 Dextrose IVPB 05/28/18 06:45 ONCE ONE Protocol Influenza Virus Vaccine Quadrival 60 mcg 05/28/18 00:54 Flulaval Quad [id number] IM 05/28/18 00:55 .ONCE ONE Lisinopril 20 mg 05/28/18 10:00 Prinivil PO DAILY KANDY Imaging - Results Chest X-ray: Image Reviewed X-ray: Pending Cat Scan: Pending EKG: Image Reviewed Problem List - Problems (1) CHF exacerbation Code(s): I50.9 - HEART FAILURE, UNSPECIFIED Qualifiers: Heart failure type: unspecified Qualified Code(s): I50.9 - Heart failure, unspecified (2) SOB (shortness of breath) Assessment/Plan: Likely secondary to Systolic HF vs PE Continue Cardiac monitoring Chest Xray- Cardiomegaly, possible mild congestion Wells Score 4.5 PERC Rule 2 Criteria D-Dimer 1399 Will order CTA- r/o PE O2 Appreciate Cardiac consult Code(s): R06.02 - SHORTNESS OF BREATH (3) Venous stasis ulcer Assessment/Plan: Appreciate Vascular consult Appreciate ID consult Will treat empirically for MRSA Wound benefit with wound clinic treatments Continue neurovascular checks Monitor CBC, BMP Monitor vitals Code(s): I83.009 - VARICOSE VEINS OF UNSP LOWER EXTREMITY W ULCER OF UNSP SITE; L97.909 - NON-PRS CHRONIC ULC UNSP PRT OF UNSP LOW LEG W UNSP SEVERITY (4) Cellulitis Assessment/Plan: Will treat empirically with Vancomycin Wound culture-pending Code(s): L03.90 - CELLULITIS, UNSPECIFIED Qualifiers: Site of cellulitis: extremity Site of cellulitis of extremity: lower extremity Laterality: right Qualified Code(s): L03.115 - Cellulitis of right lower limb (5) HLD (hyperlipidemia) Assessment/Plan: stable No current meds Lipid panel in am Consider adding statin Monitor LFTs Code(s): E78.5 - HYPERLIPIDEMIA, UNSPECIFIED (6) Hypertension Assessment/Plan: stable Monitor BP Continue Lisinopril, Carvedilol, Low Na Diet Monitor renal function Code(s): I10 - ESSENTIAL (PRIMARY) HYPERTENSION Qualifiers: Hypertension type: essential hypertension Qualified Code(s): I10 - Essential (primary) hypertension Assessment/Plan This is a 57 y/o man PMHx of HTN, HLD, CHF, Chronic Venous Stasis. Admitted to Telemetry for Acute on Chronic Systolic Heart Failure, Chest Pain r/o ACS, Right LE Cellulitis for further evaluation of their emergent condition. Plan: FEN Fluid Restriction 1L Replete lytes prn Low Na Diet DVT ppx OOB Lovenox SQ Dispo: Requires Inpatient Care Visit type - Emergency Visit Emergency Visit: Yes ED Registration Date: 05/27/18 Care time: The patient presented to the Emergency Department on the above date and was hospitalized for further evaluation of their emergent condition. - New Patient This patient is new to me today: Yes Date on this admission: 05/27/18 - Critical Care Critical Care patient: No
[2018-05-27 21:28] LABS: URINE APPEARANCE CLEAR; URINE BILIRUBIN NEGATIVE (<2.0 mg/dL); URINE COLOR COLORLESS; URINE GLUCOSE (UA) NEGATIVE (NEGATIVE); URINE KETONE NEGATIVE (NEGATIVE); URINE LEUK ESTERASE NEGATIVE (NEGATIVE); URINE NITRITE NEGATIVE (NEGATIVE); URINE PROTEIN NEGATIVE (NEGATIVE); URINE UROBILINOGEN NEGATIVE mg/dL (0.2-1.0)
[2018-05-27 22:32] LABS: INR 1.77 (0.83-1.09)
[2018-05-27] MEDS ORDERED: CARVEDILOL 3.125 MG TABLET (FP) ONE (23:09)
[2018-05-27] MEDS: CARVEDILOL 3.125 MG TABLET (FP) PO SCH (23:12)
[2018-05-28] MEDS ORDERED: VANCOMYCIN 1 GRAM (PRE-DOCKED) 1,000 MG/250 ML BAG IVPB ONE (06:00)
[2018-05-28 07:35] LABS: BASO % 0.5 % (0-2.0); HEMATOCRIT 40.1 % (35.4-49); HEMOGLOBIN 12.2 GM/dL (11.7-16.9); LYMPH % 23.4 % (8-40); MCH 25.3 pg (25.7-33.7); MCHC 30.5 g/dl (32.0-35.9); MEAN PLT VOLUME 10.9 fl (7.5-11.1); MONO % 9.4 % (3.8-10.2); NEUT % 65.7 % (42.8-82.8); PLATELET COUNT 278 K/MM3 (134-434); RBC 4.83 M/mm3 (4.00-5.60); RDW 14.5 % (11.9-15.9); WHITE BLOOD COUNT 9.4 K/mm3 (4.0-10.0)
[2018-05-28 08:41] LABS: ALBUMIN 3.4 g/dl (3.4-5.0); ALK PHOS 122 U/L (45-117); ANION GAP 9 MMOL/L (8-16); BLOOD UREA NITROGEN 21 mg/dL (7-18); CALCIUM 8.9 mg/dL (8.5-10.1); CHLORIDE 104 mmol/L (98-107); CHOLESTEROL 143 mg/dL (50-200); CO2 30 mmol/L (21-32); CREATININE 1.1 mg/dL (0.55-1.3); GLUCOSE,RANDOM 87 mg/dL (74-106); HDL CHOLESTEROL 30 mg/dL (40-60); PHOSPHOROUS 3.3 mg/dL (2.5-4.9); POTASSIUM 4.4 mmol/L (3.5-5.1); SGOT/AST 25 U/L (15-37); SGPT/ALT 33 U/L (13-61); SODIUM 142 mmol/L (136-145); TOT PROT 7.2 g/dl (6.4-8.2); TRIGLYCERIDES 106 mg/dL (0-150)
--- NOTE | 2018-05-28 09:49 | CON.ID ---
Consult Consult Specialty:: infectious disease Referred by:: hospitalist Reason for Consultation:: leg ulcer - History of Present Illness Chief Complaint: sob, palpitations History of Present Illness: 57 yo man with known CAD- muga with EF of 22%, bilateral venous stasis admitted with SOB and palpitations some chest pressure that has resolved no fevers otherwise well notes breathing now improved legs have been discolored for a long time RLE ulcer-chronic no trauma to the leg sometimes some mild swelling still smoking chart reviewed - was treated in 2016 for cellulitis with vancomycin b/c he had a rash felt to be secondary to ampicillin that he had taken as an outpt - History Source History Provided By: Patient, Medical Record Limitations to Obtaining History: Language Barrier - Past Medical History Cardio/Vascular: Yes: CAD, CHF, HTN, Hyperlipdemia Dermatology: Yes: Other (venous stasis ulcers) - Alcohol/Substance Use Hx Alcohol Use: No - Smoking History Smoking history: Current every day smoker Have you smoked in the past 12 months: No Aproximately how many cigarettes per day: 4 - Social History ADL: Independent History of Recent Travel: No Home Medications - Allergies Allergies/Adverse Reactions: Allergies Allergy/AdvReac Type Severity Reaction Status Date / Time No Known Allergies Allergy Verified 05/27/18 16:01 - Home Medications Home Medications: Ambulatory Orders Albuterol Sulfate [Proair Hfa] 8.5 gm IH Q4H PRN #1 hfa.aer.ad 03/19/18 Furosemide 40 mg PO DAILY #30 tablet 03/19/18 Lisinopril 20 mg PO DAILY #30 tablet 03/19/18 Methylprednisolone [Medrol Dose Anibal] 4 mg PO ASDIR #21 tablet 03/19/18 Triamcinolone 0.1% Ointment [Aristocort 0.1% Ointment -] 1 applic TP BID #45 g 03/19/18 Family Disease History - Family Disease History Family History: Unable to Obtain Review of Systems - Review of Systems Constitutional: reports: No Symptoms. denies: Chills, Fever Eyes: reports: No Symptoms HENT: reports: No Symptoms Neck: reports: No Symptoms Cardiovascular: reports: Chest Pain, Edema Respiratory: reports: SOB. denies: Cough Gastrointestinal: reports: No Symptoms Genitourinary: reports: No Symptoms Integumentary: reports: Change in Color (of both legs - unchanged per patient) Physical Exam Vital Signs: Vital Signs Temperature 98.2 F 05/28/18 06:00 Pulse Rate 92 H 05/28/18 06:00 Respiratory Rate 18 05/28/18 06:00 Blood Pressure 125/75 05/28/18 06:00 O2 Sat by Pulse Oximetry (%) 97 05/28/18 00:43 Constitutional: Yes: Well Nourished, No Distress, Calm Eyes: Yes: Conjunctiva Clear HENT: Yes: Atraumatic, Normocephalic. No: Thrush Neck: Yes: Supple, Trachea Midline Cardiovascular: Yes: Regular Rate and Rhythm Respiratory: Yes: Regular, CTA Bilaterally Gastrointestinal: Yes: Normal Bowel Sounds, Soft ...Rectal Exam: Yes: Deferred Renal/: No: CVA Tenderness - Left, CVA Tenderness - Right Extremities: Yes: Other (bilateral venous stasis, ulcer RLE- chronic with firm edges, no purulence) Edema: LLE: Trace, RLE: Trace Peripheral Pulses WNL: Yes Neurological: Yes: Alert, Oriented Labs: CBC, BMP 05/28/18 05:30 05/28/18 05:30 Imaging - Results Chest X-ray: Report Reviewed, Image Reviewed Cat Scan: Report Reviewed Ultrasound: Report Reviewed (no dvt) Problem List - Problems (1) CHF (congestive heart failure) Code(s): I50.9 - HEART FAILURE, UNSPECIFIED Qualifiers: Heart failure type: unspecified Heart failure chronicity: acute on chronic Qualified Code(s): I50.9 - Heart failure, unspecified (2) Venous stasis ulcer Code(s): I83.009 - VARICOSE VEINS OF UNSP LOWER EXTREMITY W ULCER OF UNSP SITE; L97.909 - NON-PRS CHRONIC ULC UNSP PRT OF UNSP LOW LEG W UNSP SEVERITY Assessment/Plan breathing improved after lasix no signs cellulitis no need for antibiotics should f/u in wound care center please call back if needed will add ampicillin allergy
[2018-05-28] MEDS ORDERED: LISINOPRIL 20 MG TABLET (FP) PO SCH (10:00)
[2018-05-28] MEDS ORDERED: FERROUS SO4 325 MG TABLET (FP) PO SCH (10:00)
[2018-05-28] MEDS ORDERED: FLU VACCINE QUAD 60 MCG/0.5 ML (MDV 18-19) IM ONE (10:00)
[2018-05-28] MEDS ORDERED: FUROSEMIDE 40 MG/4 ML INJECTABLE VIAL IVPUSH SCH (10:00)
[2018-05-28] MEDS ORDERED: ENOXAPARIN NA (PORCINE) 40 MG/0.4 ML DISP.SYRIN SQ SCH (10:00)
[2018-05-28] MEDS ORDERED: ASPIRIN 81 MG CHEWABLE TABLETS PO SCH (10:00)
--- NOTE | 2018-05-28 10:19 | PN ---
Progress Note, Physician - Current Medication List Current Medications: Active Medications Aspirin (Asa -) 81 mg PO DAILY [facility] Carvedilol (Coreg -) 3.125 mg PO BID [facility] Last Admin: 05/27/18 23:12 Dose: 3.125 mg Enoxaparin Sodium (Lovenox -) 40 mg SQ DAILY [facility] Ferrous Sulfate (Feosol -) 325 mg PO DAILY [facility] Furosemide (Lasix Injection -) 40 mg IVPUSH DAILY [facility] Lisinopril (Prinivil) 20 mg PO DAILY [facility] - Objective Vital Signs: Vital Signs Temperature 98 F 05/28/18 10:00 Pulse Rate 96 H 05/28/18 10:00 Respiratory Rate 20 05/28/18 10:00 Blood Pressure 130/64 05/28/18 10:00 O2 Sat by Pulse Oximetry (%) 97 05/28/18 09:00 Labs: CBC, BMP 05/28/18 05:30 05/28/18 05:30 INR, PTT INR 1.77 (0.83-1.09) H 05/27/18 20:54
[2018-05-28] MEDS: CARVEDILOL 3.125 MG TABLET (FP) PO SCH ×2 (10:28→21:36)
--- NOTE | 2018-05-28 13:34 | ECHO ---
Name: EMANI MAYO Exam:Adult Echocardiogram Study Date: 05/28/2018 09:00 AM Age: 57 yrs Reason For Study: CHF EXACERBATION Height: 67 in Weight: 200 lb BSA: 2.0 m2 MMode/2D Measurements & Calculations IVSd: 0.85 cm Ao root diam: 2.8 cm LVIDd: 5.3 cm LA dimension: 4.0 cm LVIDs: 4.6 cm LVPWd: 0.78 cm EDV(Teich): 134.6 ml LVLd ap4: 9.7 cm ESV(Teich): 97.5 ml EDV(MOD-sp4): 137.0 ml LVLs ap4: 8.3 cm ESV(MOD-sp4): 73.0 ml SV(MOD-sp4): 64.0 ml Doppler Measurements & Calculations MV E max ajit: 83.4 cm/sec Ao V2 max: 116.3 cm/sec MV A max ajit: 44.4 cm/sec Ao max P.4 mmHg MV E/A: 1.9 MV dec time: 0.15 sec LV V1 max P.2 mmHg MR max ajit: 321.5 cm/sec LV V1 max: 54.7 cm/sec MR max P.7 mmHg TR max ajit: 251.1 cm/sec Med Peak E' Ajit: 4.9 cm/sec TR max P.5 mmHg Med E/e': 17.1 Lat Peak E' Ajit: 9.7 cm/sec Lat E/e': 8.6 Procedure A two-dimensional transthoracic echocardiogram with color flow and Doppler was performed. Left Ventricle The left ventricle is normal in size. Left ventricular systolic function is severely reduced. The tra nsmitral spectral Doppler flow pattern is suggestive of restrictive physiology. There is severe global hypokin esis of the left ventricle. Regional wall motion abnormalities cannot be excluded due to limited visualizatio n. Right Ventricle The right ventricle is normal size. Atria The left atrium is mildly dilated. The right atrium is mildly dilated. The atrial septum is aneurysma l. Mitral Valve There is mild mitral valve thickening. There is no mitral valve stenosis. There is moderate to severe mitral regurgitation. Tricuspid Valve There is mild tricuspid valve thickening. There is no tricuspid stenosis. There is moderate tricuspid regurgitation. Right ventricular systolic pressure is normal. Aortic Valve The aortic valve is normal in structure and function. No hemodynamically significant valvular aortic stenosis. Pulmonic Valve The pulmonic valve is not well visualized. Great Vessels The aortic root is normal size. Pericardium/Pleura There is no pericardial effusion. Interpretation Summary The left ventricle is normal in size. The right atrium is mildly dilated. The left atrium is mildly dilated. There is moderate tricuspid regurgitation. Right ventricular systolic pressure is normal. Left ventricular systolic function is severely reduced. There is severe global hypokinesis of the left ventricle. Regional wall motion abnormalities cannot be excluded due to limited visualization. The atrial septum is aneurysmal. There is moderate to severe mitral regurgitation. The transmitral spectral Doppler flow pattern is suggestive of restrictive physiology. MD Hemant Reyes 05/28/2018 01:33 PM
--- NOTE | 2018-05-28 15:26 | CON.CARD ---
Consult Consult Specialty:: Cardiology Referred by:: Dr. Olvera Reason for Consultation:: Palpitations, sob - History of Present Illness Chief Complaint: palpitations sob History of Present Illness: 57 year old man with pmh HTN, HLD, Chronic venous stasis with chronic RLE ulcer , admitted with several month h/o palpitations with exertion and 1 day h/o sob. Pt seen and examined today in [facility]. Pt states that he has had palpitations frequently especially with exertion for several months which has not changed recently. He states that he came to the ER due to sob that started yesterday morning. He denies any chest pain, pnd, orthopnea. He states his chronic b/l LE edema is slightly worse than previously. states his sob is improved since admission. No lightheadedness, dizziness, syncope, or near syncope. - History Source History Provided By: Patient, Medical Record Limitations to Obtaining History: Language Barrier - Past Medical History Cardio/Vascular: Yes: CAD, CHF, HTN, Hyperlipdemia Dermatology: Yes: Other (venous stasis ulcers) - Alcohol/Substance Use Hx Alcohol Use: No - Smoking History Smoking history: Current every day smoker Have you smoked in the past 12 months: No Aproximately how many cigarettes per day: 4 - Social History ADL: Independent History of Recent Travel: No Home Medications - Allergies Allergies/Adverse Reactions: Allergies Allergy/AdvReac Type Severity Reaction Status Date / Time ampicillin Allergy Rash Verified 05/28/18 10:19 - Home Medications Home Medications: Ambulatory Orders Albuterol Sulfate [Proair Hfa] 8.5 gm IH Q4H PRN #1 hfa.aer.ad 03/19/18 Furosemide 40 mg PO DAILY #30 tablet 03/19/18 Lisinopril 20 mg PO DAILY #30 tablet 03/19/18 Methylprednisolone [Medrol Dose Anibal] 4 mg PO ASDIR #21 tablet 03/19/18 Triamcinolone 0.1% Ointment [Aristocort 0.1% Ointment -] 1 applic TP BID #45 g 03/19/18 Family Disease History - Family Disease History Family History: Denies Review of Systems - Review of Systems Constitutional: denies: No Symptoms, Chills, Diaphoresis, Fever, Lethargy, Loss of Appetite, Malaise, Night Sweats, Unintentional Wgt. Loss, Weakness, Other Eyes: denies: No Symptoms, Blind Spots, Blurred Vision, Double Vision, Eye Pain , Floaters, Photophobia, Recent Change in Vision, Other HENT: denies: No Symptoms, Difficult Swallowing, Ear Discharge, Ear Pain, Epistaxis, Gingival Bleeding, Hearing Loss, Mouth Swelling, Nasal Congestion, Ocular Prosthesis, Throat Pain, Toothache, Ringing in Ears, Other Neck: denies: No Symptoms, Decreased ROM, Lumps, Pain on Movement, Stiffness, Swollen Glands, Tenderness, Other Cardiovascular: reports: Edema, Palpitations, Shortness of Breath. denies: No Symptoms, Chest Pain, Other Respiratory: reports: SOB, SOB on Exertion. denies: No Symptoms, Cough, Exercise Intolerance, Hemoptysis, Orthopnea, PND, Snoring, Wheezing, Other Gastrointestinal: denies: No Symptoms, Abdominal Pain, Bloating, Constipation, Diarrhea, Dysphagia, Indigestion, Melena, Nausea, Rectal Bleeding, Vomiting, Vomiting Blood, Other Genitourinary: denies: No Symptoms, Burning, Discharge, Dysuria, Flank Pain, Frequency, Hematuria, Incontinence, Lesions, Menses, Pain, Testicular Mass, Testicular Pain, Testicular Swelling, Urgency, Vaginal Bleeding, Other Breasts: denies: No Symptoms Reported, See HPI, Breast Implants, Discharge from Nipple, Lumps, Pain, Skin Changes, Other Musculoskeletal: denies: No Symptoms, Back Pain, Crepitus, Decreased ROM, Extremity Pain, Joint Pain, Joint Swelling, Muscle Pain, Muscle Cramps, Muscle Weakness, Other Integumentary: reports: Wound. denies: No Symptoms, Blister, Bruising, Change in Color, Eczema, Erythema, Incision, Lesions, Lump, Pallor, Pruritis, Rash, Other Neurological: denies: No Symptoms, Change in LOC, Change in Speech, Confusion, Dizziness, Headache, Incoordination, Numbness, Parasthesia, Pre-Existing Deficit , Seizure, Syncope, Tremors, Unsteady Gait, Weakness, Other Endocrine: denies: No Symptoms, Excessive Sweating, Flushing, Increased Hunger, Increased Thirst, Intolerance to Cold, Intolerance to Heat, Unexplained Weight Gain, Unexplained Weight Loss, Other Hematology/Lymphatic: denies: No Symptoms, Easily Bruised, Excessive Bleeding, Swollen Glands, Other Psychiatric: denies: No Symptoms, Altered Sleep Pattern, Anxiety, Depression, Hallucinations, Panic, Paranoia, Suicidal, Other - Risk Factors Known Risk Factors: Yes: Hypercholesterolemia, Hypertension Vital Signs: Vital Signs Temperature 98 F 05/28/18 10:00 Pulse Rate 96 H 05/28/18 10:00 Respiratory Rate 20 05/28/18 10:00 Blood Pressure 130/64 05/28/18 10:00 O2 Sat by Pulse Oximetry (%) 97 05/28/18 09:00 Constitutional: Yes: No Distress, Calm Eyes: Yes: Conjunctiva Clear, EOM Intact HENT: Yes: Atraumatic, Normocephalic Neck: Yes: Supple, Trachea Midline Respiratory: Yes: Regular, CTA Bilaterally. No: Rales, Rhonchi, SOB, Wheezes Gastrointestinal: Yes: Normal Bowel Sounds, Soft. No: Distention, Tenderness Cardiovascular: Yes: Regular Rate and Rhythm. No: Bradycardia, Tachycardia, Pulse Irregular, Gallop, Rub, Varicosities JVD: No Carotid Bruit: No PMI: Non-Displaced Heart Sounds: Yes: S1, S2. No: Split S2, S3, S4, Clicks, Gallop, Rub, Bruit Murmur: No: Systolic Murmur, Diastolic Murmur Musculoskeletal: Yes: WNL Extremities: Yes: Other (ulcer r foot) Edema: Yes Edema: LLE: 1+, RLE: 1+ Peripheral Pulses WNL: Yes Peripheral Pulses: 2+ Left Doralis Pedis, 2+ Right Dorsalis Pedis Integumentary: Yes: Venous Stasis Changes Neurological: Yes: Alert, Oriented Psychiatric: Yes: Alert, Oriented - Other Data Labs, Other Data: CBC, BMP 05/28/18 05:30 05/28/18 05:30 INR, PTT INR 1.77 (0.83-1.09) H 05/27/18 20:54 Troponin, BNP 05/27/18 16:25 Troponin I 0.02 B-Natriuretic Peptide 6785.6 H Troponin, BNP 05/27/18 16:25 Troponin I 0.02 B-Natriuretic Peptide 6785.6 H ekg-sinus tach 111bpm, anterior infarct, LAE Echo: Report Reviewed Ejection Fraction %: LVEF > or = 40 % Imaging - Results Chest X-ray: Report Reviewed, Image Reviewed EKG: Report Reviewed, Image Reviewed Other: Report Reviewed, Image Reviewed Assessment/Plan 57 year old man with pmh HTN, HLD, Chronic venous stasis with chronic RLE ulcer , admitted with several month h/o palpitations with exertion and 1 day h/o sob. Pt seen and examined today in [facility]. Pt states that he has had palpitations frequently especially with exertion for several months which has not changed recently. He states that he came to the ER due to sob that started yesterday morning. He denies any chest pain, pnd, orthopnea. He states his chronic b/l LE edema is slightly worse than previously. states his sob is improved since admission. No lightheadedness, dizziness, syncope, or near syncope. SOB- -likely acute on chronic systolic CHF -currently close to euvolemic on exam, lungs clear -LE edema mostly secondary to chronic venous insufficiency -cont IV Lasix today and re-evaluate tomorrow -monitor I/Os, daily weights, bun/creat, electrolytes and replete as needed -recent nuclear stress test done as outpatient 03/2018 showed inferior infarct and LVEF 22% -echo today 05/28/18 showed severe global LV systolic dysfunction, mod to severe MR, mod TR -unknown if etiology of cardiomyoathy whether ischemic or NICM. Pt does not know if he had a cardiac cath in the past or if he was considered for ICD implantation. -will obtain results of his outpatient cardiac work up, if no prior cardiac cath , would recc during this admission -additionally if he has been treated with optimal medical therapy for >3 months he may qualify for ICD implantation -cardiac enzymes wnl here -cont ASA, Coreg, lisinopril with plan to titrate as tolerates Palpitations -uncertain etiology -ambulated pt with mild symptoms of palpitations but no events on tele -concern for VT with known cardiomyopathy -cont tele monitoring -keep electrolytes wnl -if discharged without diagnoses would recc further outpatient event monitoring.
--- NOTE | 2018-05-28 17:01 | DS ---
Physical Examination Vital Signs: Vital Signs Temperature 97.4 F L 05/28/18 14:00 Pulse Rate 92 H 05/28/18 14:00 Respiratory Rate 20 05/28/18 10:00 Blood Pressure 120/84 05/28/18 14:00 O2 Sat by Pulse Oximetry (%) 97 05/28/18 09:00 Findings/Remarks: DISCUSSED WITH DR ALVAREZ FROM CARDIOLOGY AND PATIENT NEEDS A CARDIAC CATH AND ICD.WILL TRANSFER TO [facility] FOR WORKUP Constitutional: Yes: Moderate Distress Eyes: Yes: WNL HENT: Yes: WNL Neck: Yes: WNL Cardiovascular: Yes: Regular Rate and Rhythm Respiratory: Yes: Rhonchi, SOB Gastrointestinal: Yes: WNL Musculoskeletal: Yes: WNL Extremities: Yes: WNL Edema: Yes Integumentary: Yes: WNL Neurological: Yes: WNL ...Motor Strength: WNL Psychiatric: Yes: WNL Labs: CBC, BMP 05/28/18 05:30 05/28/18 05:30 Discharge Summary Reason For Visit: ACUTE ON CHRON CHF/TACHYCARDIA Current Active Problems CHF (congestive heart failure) (Acute) HLD (hyperlipidemia) (Acute) SOB (shortness of breath) (Acute) Venous stasis ulcer (Acute) Procedures: Principal: CTA Hospital Course: ACUTE SYSTOLIC HEART FAILURE NEEDS CARDIAC CATH AND POSSIBLE ICD Condition: Guarded - Instructions Referrals: Dexter Mcgowan MD [Staff Physician] - Luis Olvera MD [Primary Care Provider] - Disposition: TRANSFER ACUTE CARE/OTHER HOSP - Home Medications Comprehensive Discharge Medication List: Ambulatory Orders Albuterol Sulfate [Proair Hfa] 8.5 gm IH Q4H PRN #1 hfa.aer.ad 03/19/18 Furosemide 40 mg PO DAILY #30 tablet 03/19/18 Lisinopril 20 mg PO DAILY #30 tablet 03/19/18 Methylprednisolone [Medrol Dose Anibal] 4 mg PO ASDIR #21 tablet 03/19/18 Triamcinolone 0.1% Ointment [Aristocort 0.1% Ointment -] 1 applic TP BID #45 g 03/19/18
[2018-05-29 06:25] VITALS: BP 111/69; PULSE 91; TEMP 97.5
--- NOTE | 2018-06-01 12:34 | EKG ---
Test Reason : Blood Pressure : / mmHG Vent. Rate : 111 BPM Atrial Rate : 111 BPM P-R Int : 136 ms QRS Dur : 092 ms QT Int : 350 ms P-R-T Axes : 070 039 053 degrees QTc Int : 476 ms SINUS TACHYCARDIA POSSIBLE LEFT ATRIAL ENLARGEMENT POSSIBLE ANTERIOR INFARCT (CITED ON OR BEFORE 19-MAR-2018) ABNORMAL ECG WHEN COMPARED WITH ECG OF 19-MAR-2018 05:09, COMPARED TO EKG NO SIGNIFICANT CHANGE IS FOUND Confirmed by NASIM SIFUENTES MD ([id number]) on 06/01/2018 12:33:32 PM Referred By: Confirmed By:NASIM SIFUENTES MD
== END 2018-05-29 08:32 | disposition short-term general hospital (02) | DRG 194 ==
LOC: JER 15:57 → JERBED 20:37 → J4W 05-28 00:38
PROVIDERS: ADMIT Internal Medicine; ATTEND Family Medicine
DX: I11.0 Hypertensive heart disease with heart failure (principal); I50.23 Acute on chronic systolic (congestive) heart failure; L03.115 Cellulitis of right lower limb; E78.5 Hyperlipidemia, unspecified; I87.2 Venous insufficiency (chronic) (peripheral); R00.0 Tachycardia, unspecified; F17.210 Nicotine dependence, cigarettes, uncomplicated; L97.919 Non-pressure chronic ulcer of unspecified part of right lower leg with unspecified severity; R00.2 Palpitations; I25.10 Atherosclerotic heart disease of native coronary artery without angina pectoris
CPT/HCPCS: 36415; 71046-TC-FY; 71275-TC; 73610-TC-RT-FY; 73630-TC-RT-FY; 80053; 80061; 81003; 82248; 82550; 83036; 83721; 83735; 83880; 84100; 84484; 85025; 85379; 85610; 87040; 87070; 87186; 87205; 90688; 93005; 93010; 93306-TC; 93970-TC; 99285-25; G0008

== ENCOUNTER 2019-05-29 11:23 | Emergency (ER) | payer OTHER ==
[2019-05-29 11:40] VITALS: BP 100/59; PULSE 107; TEMP 97.6; BMI 28.1
--- NOTE | 2019-05-29 12:06 | PDOC ---
History of Present Illness - General Chief Complaint: Rash Stated Complaint: RASH Time Seen by Provider: 05/29/19 12:02 - History of Present Illness Initial Comments: 05/29/19 12:03 CHIEF COMPLAINT: rash HISTORY OF PRESENT ILLNESS: 58 yo M with hx of HTN, HLD, and chronic venous stasis ulcers presents to fast track with rash x 5 days. Patient denies any new foods or medications, denies any new possible allergens. Patient reports the rash is on his entire body and is itchy. No recent travel or sick contacts. PAST MEDICAL HISTORY: HTN, HLD FAMILY HISTORY: Denies SOCIAL HISTORY: Denies tobacco, alcohol, illicit drug use. SURGICAL HISTORY: Denies ALLERGIES: ampicillin REVIEW OF SYSTEMS General/Constitutional: Denies fever or chills. Denies weakness, weight change. HEENT: Denies change in vision. Denies ear pain or discharge. Denies sore throat. Cardiovascular: Denies chest pain or shortness of breath. Respiratory: Denies cough, wheezing, or hemoptysis. Gastrointestinal: Denies nausea, vomiting, diarrhea or constipation. Denies rectal bleeding. Genitourinary: Denies dysuria, frequency, or change in urination. Musculoskeletal: Denies joint or muscle swelling or pain. Denies neck or back pain. Skin: Itchy rash to entire body x 5 days. Neurologic: Denies headache, vertigo, loss of consciousness, or loss of sensation. Psychiatric: Denies depression or anxiety. PHYSICAL EXAM General Appearance: Well-appearing, appropriately dressed. No apparent distress , no intoxication. HEENT: EOMI, PERRLA, normal ENT inspection, normal voice, TMs normal, pharynx normal. No conjunctival pallor. No photophobia, scleral icterus. Neck: Supple. Trachea midline. No tenderness, rigidity, carotid bruit, stridor , lymphadenopathy, or thyromegaly. Respiratory/Chest: Lungs CTAB. No shortness of breath, chest tenderness, respiratory distress, accessory muscle use. No crackles, rales, rhonchi, stridor , wheezing, dullness Cardiovascular: RRR. S1, S2. No JVD, murmur, bradycardia, tachycardia. Vascular Pulses: Dorsalis-Pedis (R): 2+, Dorsalis-Pedis (L): 2+ Gastrointestinal/Abdominal: Normal bowel sounds. Abdomen soft, non-distended. No tenderness or rebound tenderness. No organomegaly, pulsatile mass, guarding , hernia, hepatomegaly, splenomegaly. Lymphatic: No adenopathy, tenderness. Musculoskeletal/Extremities: Normal inspection. FROM of all extremities, normal capillary refill. Pelvis Stable. No CVA tenderness. No tenderness to extremities, pedal edema, swelling, erythema or deformity. Integumentary: Generalized erythematous, macular, pruritic rash with dry, flaky skin. Appropriate color, dry, warm. No cyanosis, erythema, jaundice or rash Neurologic: stripping cutter and winder II-XII intact. Fully oriented, alert. Appropriate mood/affect. Motor strength 5/5. No appreciable EOM palsy, facial droop or sensory deficit. Past History - Past Medical History Allergies/Adverse Reactions: Allergies Allergy/AdvReac Type Severity Reaction Status Date / Time ampicillin Allergy Rash Verified 05/29/19 11:36 Home Medications: Ambulatory Orders Albuterol Sulfate [Proair Hfa] 8.5 gm IH Q4H PRN #1 hfa.aer.ad 03/19/18 Furosemide 40 mg PO DAILY #30 tablet 03/19/18 Lisinopril 20 mg PO DAILY #30 tablet 03/19/18 Methylprednisolone [Medrol Dose Anibal] 4 mg PO ASDIR #21 tablet 03/19/18 Triamcinolone 0.1% Ointment [Aristocort 0.1% Ointment -] 1 applic TP BID #45 g 03/19/18 Ceramides 1,3,6-11 [Cerave] 453 gm TP DAILY #1 cream..g. 05/29/19 Anemia: No Asthma: Yes Cancer: No Cardiac Disorders: Yes (CHF) CVA: No COPD: No CHF: No Dementia: No Diabetes: Yes GI Disorders: No Disorders: No HTN: Yes Hypercholesterolemia: Yes Liver Disease: No Seizures: No Thyroid Disease: No - Surgical History Abdominal Surgery: No Appendectomy: No Cardiac Surgery: No Cholecystectomy: No Lung Surgery: No Neurologic Surgery: No Orthopedic Surgery: No - Immunization History Immunization Up to Date: Yes - Psycho Social/Smoking Cessation Hx Smoking History: Never smoked Have you smoked in the past 12 months: No Number of Cigarettes Smoked Daily: 4 Information on smoking cessation initiated: No Hx Alcohol Use: No Drug/Substance Use Hx: No Substance Use Type: None Hx Substance Use Treatment: Yes (SOCIALLY) *Physical Exam - Vital Signs Last Vital Signs Temp Pulse Resp BP Pulse Ox 97.6 F 107 H 17 100/59 L 100 05/29/19 11:36 05/29/19 11:36 05/29/19 11:36 05/29/19 11:36 05/29/19 11:36 Medical Decision Making - Medical Decision Making 05/29/19 12:24 58 yo M with hx of HTN, HLD, and chronic venous stasis ulcers presents to fast track with rash x 5 days. Likely eczema vs allergic reaction. -decadron IM -benadryl -cerave cream Advised patient to take medication as prescribed and follow up with dermatology if symptoms persist. Advised patient of signs and symptoms for return to ED. Patient verbalized understanding and agrees to plan. Discharge - Discharge Information Problems reviewed: Yes Clinical Impression/Diagnosis: Rash Eczema Qualifiers: Eczema type: unspecified Qualified Code(s): L30.9 - Dermatitis, unspecified Condition: Stable Disposition: HOME - Admission No - Additional Discharge Information Prescriptions: Ceramides 1,3,6-11 [Cerave] 453 gm TP DAILY #1 cream..g. - Follow up/Referral Referrals: Silvia Chakraborty MD [Staff Physician] - - Patient Discharge Instructions Patient Printed Discharge Instructions: DI for Atopic Dermatitis - Adult Print Language: S[place] - Post Discharge Activity
[2019-05-29] MEDS ORDERED: DEXAMETHASONE SOD PHOSPHATE 10 MG/1 ML VIAL IM ONE (12:22)
[2019-05-29] MEDS ORDERED: diphenhydrAMINE HCL 25 MG CAPSULE (FP) PO ONE ×2 (12:22→12:26)
[2019-05-29] MEDS ORDERED: DEXAMETHASONE SOD PHOSPHATE 10 MG/1 ML VIAL ONE (12:26)
== END 2019-05-29 12:40 | disposition home or self-care (01) ==
LOC: JERFT 11:23
PROC: 3E023GC Introduction of Other Therapeutic Substance into Muscle, Percutaneous Approach (ICD-10-PCS; principal; 2019-05-29)
DX: L30.9 Dermatitis, unspecified (principal); Z88.8 Allergy status to other drugs, medicaments and biological substances; I10 Essential (primary) hypertension; E78.5 Hyperlipidemia, unspecified; I87.8 Other specified disorders of veins
CPT/HCPCS: 99281-25; J1100